=== PATIENT | male | born 1955 | race American Indian/Alaskan Native ===

== ENCOUNTER 2016-09-07 08:17 | Outpatient (CLI) | payer MEDICAID ==
--- NOTE | 2016-09-07 15:15 | Fluoroscopy Report ---
AIR CONTRAST BARIUM ENEMA History: Screening for colon cancer, failed colonoscopy. Findings: Production Artist film of the abdomen is within normal limits. 18 fluoroscopic images were captured during retrograde administration of barium contrast agent. There is a subtle area of mild narrowing near the junction of the rectum and sigmoid colon. There is no discrete mass or apple core lesion. This does not obstruct. This may represent an area of focal inflammation. Please correlate with the colonoscopy report. This subtle area of narrowing is approximately 30 cm from the anus. The remaining colon demonstrates normal caliber and the dorsal pattern. There are a few scattered diverticula in the descending colon. There is no cecal filling defect. Normal appendix is identified. Impression: Subtle area of near the rectosigmoid junction as outlined above. I do not clearly see a mass in this area. This may represent a focal area of inflammation. Please correlate with the colonoscopy report. Mild diverticulosis.
== END 2016-09-07 08:18 | disposition home or self-care (01) ==
LOC: FLUORO 08:17
PROVIDERS: ATTEND Internal Medicine Gastroenterology
DX: Z12.11 Encounter for screening for malignant neoplasm of colon (principal); K57.30 Diverticulosis of large intestine without perforation or abscess without bleeding
CPT/HCPCS: 74280

== ENCOUNTER 2017-04-23 11:48 | Emergency (ER) | payer MEDICAID ==
[2017-04-23 12:14] VITALS: BP 126/87
--- NOTE | 2017-04-23 14:16 | Emergency Department Report ---
ED Rash HPI - HPI Chief Complaint: Skin Rash Stated Complaint: INSECT BITE IN CHEST Time Seen by Provider: 04/23/17 13:49 Duration: Today Location: Chest Suspected Cause: Unknown Rash Symptoms: Yes Itching, No Facial Swelling, No Tongue/Oral Swelling, No Breathing Difficulties, No Choking Sensation, No Wheezing/Dyspnea, No Peeling, No Blistering, No Fever, No Lightheaded, No Malaise, No Myalgias Other History: 61-year-old male presents to the ED complaining about a papular rash of the chest wall starting this morning. States that there is tenderness to touch and also itching. Denies using medication. Denies fever. Denies radiating pain. ED Review of Systems ROS: Stated complaint: INSECT BITE IN CHEST Other details as noted in HPI Constitutional: denies: chills, fever Eyes: denies: eye pain, eye discharge, vision change ENT: denies: ear pain, throat pain Respiratory: denies: cough, shortness of breath, wheezing Cardiovascular: denies: chest pain, palpitations Endocrine: no symptoms reported Gastrointestinal: denies: abdominal pain, nausea, diarrhea Genitourinary: denies: urgency, dysuria Musculoskeletal: denies: back pain, joint swelling, arthralgia Skin: rash. denies: lesions Neurological: denies: headache, weakness, paresthesias Psychiatric: denies: anxiety, depression Hematological/Lymphatic: denies: easy bleeding, easy bruising ED Past Medical Hx - Past Medical History Hx Psychiatric Treatment: Yes (schizophrenia) Hx Asthma: Yes - Surgical History Past Surgical History?: Yes Additional Surgical History: Right hip fracture repair - Social History Smoking Status: Current Every Day Smoker Substance Use Type: None - Medications Home Medications: Home Medications Medication Instructions Recorded Confirmed Last Taken Type Benztropine [Cogentin] 0.5 mg PO BID 09/13/15 05/05/16 05/05/16 History traZODone [Desyrel] 50 mg PO QHS 09/13/15 05/05/16 05/05/16 History Haloperidol [Haldol] 5 mg PO BID 12/18/15 05/05/16 05/05/[address] [Voltaren Dr] 75 mg PO TID PRN #21 tablet 03/09/16 05/05/16 Rx guaiFENesin [Mucinex] 600 mg PO Q6HR #20 tab.er.12h 06/08/16 Unknown Rx Sulfamethoxazole/Trimethoprim 1 each PO BID #14 tablet 04/23/17 Unknown Rx [Bactrim DS TAB] Triamcinolone Acetonide 60 ml TP BID #1 lotion 04/23/17 Unknown Rx [Triamcinolone 0.1% LOTION] Rash Exam - Exam General: Vital signs noted. No distress. Alert and acting appropriately. HEENT: No Periorbital Edema, No Conjuctival Injection, No Chemosis, No Perioral Edema, No Tongue Edema, No Uvular Edema, No Compromised Airway, No Drooling Lungs: No Good Air Exchange, No Wheezes, No Ronchi, No Stridor, No Cough, No Labored Respirations, No Retractions, No Use of Accessory Muscles, No Other Abnormal Lung Sounds Heart: No Regular, No Murmur Skin: Yes Maculopapular Rash (about size of palm (1 %BSA) ttp), No Urticarial Rash, No Morbilliform rash, No Bulla(e), No Excoriations, No Weeping, No Tenderness, No Erythema, No Edema, No Encrustations, No Other ED Course Vital Signs 04/23/17 12:07 Temperature 97.4 F L Pulse Rate 92 H Respiratory 16 Rate Blood Pressure 126/87 O2 Sat by Pulse 95 Oximetry ED Medical Decision Making - Medical Decision Making patient is resting comfortably will treat with steroid and abx. vss for DC. NAd at this time Critical care attestation.: If time is entered above; I have spent that time in minutes in the direct care of this critically ill patient, excluding procedure time. ED Disposition Clinical Impression: Rash and nonspecific skin eruption Disposition: DC-01 TO HOME OR SELFCARE Is pt being admited?: No Does the pt Need Aspirin: No Condition: Good Instructions: Acute Rash (ED) Prescriptions: Sulfamethoxazole/Trimethoprim [Bactrim DS TAB] 1 each PO BID #14 tablet Triamcinolone Acetonide [Triamcinolone 0.1% LOTION] 60 ml TP BID #1 lotion Referrals: PRIMARY CARE, [Primary Care Provider] - 3-5 Days Forms: Work/School Release Form(ED) Time of Disposition: 14:20
== END 2017-04-23 14:22 | disposition home or self-care (01) ==
LOC: ED 11:48
DX: R21 Rash and other nonspecific skin eruption (principal); J45.909 Unspecified asthma, uncomplicated; F20.9 Schizophrenia, unspecified; F17.200 Nicotine dependence, unspecified, uncomplicated; Z88.0 Allergy status to penicillin
CPT/HCPCS: 99282

== ENCOUNTER 2017-04-24 11:32 | Emergency (ER) | payer MEDICAID, OTHER ==
[2017-04-24 12:27] VITALS: BP 142/83
[2017-04-24] MEDS ORDERED: BOOSTRIX IM ONE (13:01)
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
[2017-04-24 13:14] LABS: Basophils % (Auto) 0.8 % (0.0-1.8); Eosinophils % (Auto) 0.2 % (0.0-4.3); Hemoglobin 14.3 gm/dl (11.8-15.2); Mean Corpuscular HGB Conc 33 % (32-34); Mean Corpuscular Hemoglobin 30 pg (28-32); Mean Corpuscular Volume 89 fl (84-94); Platelet Count 209 K/mm3 (140-440); Red Blood Count 4.82 M/mm3 (3.65-5.03); Red Cell Distribution Width 12.7 % (13.2-15.2); White Blood Count 7.1 K/mm3 (4.5-11.0)
[2017-04-24 13:27] LABS: INR 1.03 (0.87-1.13)
[2017-04-24 13:34] LABS: Creatine Kinase MB 3.5 ng/mL (0.0-4.0)
[2017-04-24 13:36] LABS: Alanine Aminotransferase 21 units/L (7-56); Alkaline Phosphatase 78 units/L (35-129); Anion Gap 20 mmol/L; BUN/Creatinine Ratio 11; Blood Urea Nitrogen 11 mg/dL (9-20); Carbon Dioxide 23 mmol/L (22-30); Chloride 102.7 mmol/L (98-107); Creatine Kinase 782 units/L (55-170); Glucose 78 mg/dL (75-100); Potassium 4.4 mmol/L (3.6-5.0); Sodium 141 mmol/L (137-145); Total Protein 7.9 g/dL (6.3-8.2)
[2017-04-24] MEDS ORDERED: NACL ONE (14:00)
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
[2017-04-24] MEDS ORDERED: ULTRAM PO ONE (15:56)
[2017-04-24] MEDS ORDERED: ANTIBIOTIC OINT TP ONE (15:57)
[2017-04-24] MEDS ORDERED: TRIPLE ANTIBIOTIC TP ONE (16:23)
[2017-04-24 16:57] LABS: HIV-1 Antigen p24 Non React (Non React); HIVR-1/2 Ab Non React (Non React)
== END 2017-04-24 17:19 | disposition home or self-care (01) ==
LOC: ED 11:32 → EEVIPCON 11:32 → ED 17:19
DX: S00.01XA Abrasion of scalp, initial encounter (principal); F17.210 Nicotine dependence, cigarettes, uncomplicated; Y09 Assault by unspecified means; Y93.89 Activity, other specified; Y92.89 Other specified places as the place of occurrence of the external cause; Y99.8 Other external cause status
CPT/HCPCS: 36415; 70450; 72125; 74177; 80053; 80074; 82550; 82553; 84484; 85025; 85610; 85730; 87806; 90471; 90715; 93005; 93010; 99284; Q9967; A6250

== ENCOUNTER 2017-12-16 20:55 | Emergency (ER) | payer OTHER ==
[~2017-12-16 20:55] MED LIST: ADRENALIN ONE
--- NOTE | 2017-12-16 21:34 | Emergency Department Report ---
ED CPR HPI - General Stated Complaint: CARDIAC ARREST Time Seen by Provider: 12/16/17 20:55 Source: EMS Mode of arrival: Stretcher Limitations: Altered Mental Status, Physical Limitation, Other - History of Present Illness Initial Comments: 62-year-old male with a past medical history of schizophrenia presents from the [facility] status post cardiac arrest is a responsible, intubated, pulseless and apneic upon arrival. Patient presents intubated with 7.0 ET tube with chest compressions in progress. EMS reports that [facility] found the patient actually having a seizure and then went unresponsive. They received a call at 20:23. CPR was initiated prior to arrival at 20:27. Upon their arrival patient was in V. and received 200 J defibrillation fib. Rhythm then changed to PEA to asystole to V. tach again. After another 300 J defibrillation patient deteriorated to asystole. 3 epinephrines and one amp of sodium bicarbonate were given prior to arrival. Accu-Chek 177. - Related Data Home Medications Medication Instructions Recorded Confirmed Last Taken Benztropine [Cogentin] 0.5 mg PO BID 09/13/15 05/05/16 05/05/16 traZODone [Desyrel] 50 mg PO QHS 09/13/15 05/05/16 05/05/16 Haloperidol [Haldol] 5 mg PO BID 12/18/15 05/05/16 05/05/16 Previous Rx's Medication Instructions Recorded Last Taken Type Diclofenac Dr [Juan Jose Dos Santos] 75 mg PO TID PRN #21 tablet 03/09/16 05/05/16 Rx guaiFENesin [Mucinex] 600 mg PO Q6HR #20 tab.er.12h 06/08/16 Unknown Rx Sulfamethoxazole/Trimethoprim 1 each PO BID #14 tablet 04/23/17 Unknown Rx [Bactrim DS TAB] Triamcinolone Acetonide 60 ml TP BID #1 lotion 04/23/17 Unknown Rx [Triamcinolone 0.1% LOTION] traMADol [Ultram] 50 mg PO Q6HR PRN #10 tablet 04/24/17 Unknown Rx Allergies Allergy/AdvReac Type Severity Reaction Status Date / Time Penicillins Allergy Itching Verified 09/16/15 10:19 ED Review of Systems ROS: Stated complaint: CARDIAC ARREST Other details as noted in HPI Comment: Unobtainable due to pts medical conditions ED Past Medical Hx - Past Medical History Previous Medical History?: Yes Hx Psychiatric Treatment: Yes (schizophrenia) Hx Asthma: Yes Additional medical history: hallucinations, homocidal ideation - Surgical History Additional Surgical History: Right hip fracture repair - Social History Smoking Status: Unknown if ever smoked - Medications Home Medications: Home Medications Medication Instructions Recorded Confirmed Last Taken Type Benztropine [Cogentin] 0.5 mg PO BID 09/13/15 05/05/16 05/05/16 History traZODone [Desyrel] 50 mg PO QHS 09/13/15 05/05/16 05/05/16 History Haloperidol [Haldol] 5 mg PO BID 12/18/15 05/05/16 05/05/[address] [Voltaren Dr] 75 mg PO TID PRN #21 tablet 03/09/16 05/05/16 Rx guaiFENesin [Mucinex] 600 mg PO Q6HR #20 tab.er.12h 06/08/16 Unknown Rx Sulfamethoxazole/Trimethoprim 1 each PO BID #14 tablet 04/23/17 Unknown Rx [Bactrim DS TAB] Triamcinolone Acetonide 60 ml TP BID #1 lotion 04/23/17 Unknown Rx [Triamcinolone 0.1% LOTION] traMADol [Ultram] 50 mg PO Q6HR PRN #10 tablet 04/24/17 Unknown Rx ED Physical Exam - General Limitations: Other - Other Other exam information: General: Unresponsive distress Head exam: No signs of trauma Eyes exam: Pupils fixed and dilated ENT: Orally intubated with 7.0 ET tube Neck exam: Normal inspection Respiratory exam: Apneic, with sounds clear with bagging, breath sounds slightly greater on the right, no breath sounds with epigastric. Positive CO2 detector change Cardiovascular: Pulseless without audible heartbeat Abdomen: Soft, nondistended Extremity: No deformity or signs of trauma Back: Normal Inspection Neurologic: GCS = 3 Psychiatric: Responsive Skin: Warm, dry, intact ED Medical Decision Making - Medical Decision Making Patient status post cardiac arrest Arrival patient was asystole. He received epinephrine 2 with PEA rhythm. Despite resuscitation efforts has not been any retained spontaneous circulation since EMS initial pt contact at 20:27. Time of 21:04 - Differential Diagnosis cardiopulmonary arrest, PE, seizure, [place], arrhythmia Critical Care Time: No Critical care attestation.: If time is entered above; I have spent that time in minutes in the direct care of this critically ill patient, excluding procedure time. ED Disposition Clinical Impression: Cardiopulmonary arrest Disposition: DC-20 Is pt being admited?: No Does the pt Need Aspirin: No Condition: Stable Time of Disposition: 21:36
== END 2017-12-16 23:55 ==
LOC: EEVIPCON 20:55 → ED 20:55
DX: I46.9 Cardiac arrest, cause unspecified (principal); F20.9 Schizophrenia, unspecified; J45.909 Unspecified asthma, uncomplicated; Z88.0 Allergy status to penicillin
CPT/HCPCS: 92950; 99285; J0171